=== PATIENT | male | born 1990 | race Two or more races ===

== ENCOUNTER 2021-02-06 09:13 | Emergency (ER) | payer OTHER ==
[~2021-02-06] VITALS: Ht 160 cm; Wt 65.8 kg
[2021-02-06 09:44] LABS: Basophils # (auto) 0 10 ^3/uL (0-0.2); Basophils % (auto) 0.5 % (0.0-2.0); Eosinophils # (auto) 0.1 10 ^3/uL (0-0.8); Eosinophils % (auto) 1.5 % (0.0-7.0); Hematocrit 46.3 % (41.0-53.0); Hemoglobin 16.3 g/dL (13.5-17.5); Lymphocytes # (auto) 1.9 10 ^3/uL (0.4-5.4); Lymphocytes % (auto) 26.6 % (10.0-50.0); Mean Corpuscular Hgb Conc. 35.1 g/dL (32.0-36.0); Mean Corpuscular Volume 88.3 fL (80.0-100.0); Monocytes # (auto) 0.4 10 ^3/uL (0-1.3); Monocytes % (auto) 5.6 % (0.0-12.0); Neutrophils # (auto) 4.7 10 ^3/uL (1.6-8.6); Neutrophils % (auto) 65.8 % (37.0-80.0); Platelet Count (auto) 360 10^3/uL (140-450); Red Blood Cells 5.24 10^6/uL (4.5-5.90); Red Cell Distribution Width 12.6 % (11.8-14.3); White Blood Cell 7.1 10^3/uL (4.4-10.8)
[2021-02-06 10:01] LABS: Albumin 4.4 g/dL (3.4-5.0); Anion Gap 8 (5-15); Blood Urea Nitrogen 12 mg/dL (7-18); Calcium 9.4 mg/dL (8.5-10.1); Carbon Dioxide 25 mmol/L (21-32); Chloride 104 mmol/L (98-107); Glucose 98 mg/dL (74-106); Magnesium 2.9 mg/dL (1.6-2.6); Potassium 3.6 mmol/L (3.5-5.1); Sodium 137 mmol/L (136-145)
[2021-02-06 10:07] LABS: Alanine Aminotransferase 27 U/L (16-61); Alkaline Phosphatase 102 U/L (45-117); Aspartate Aminotransferase 30 U/L (15-37); BUN/Creatinine Ratio 10.3; Bilirubin, Total 0.6 mg/dL (0.2-1.0); GFR African American 96 mL/min; GFR Non-African American 80 mL/min; Total Protein 8.9 g/dL (6.4-8.2)
[2021-02-06 10:50] VITALS: BP 124/67
== END 2021-02-06 10:54 | disposition home or self-care (01) ==
LOC: EDBD 09:13 → ER 09:13
DX: F41.9 Anxiety disorder, unspecified (principal); R42 Dizziness and giddiness
CPT/HCPCS: 36415; 80053; 83735; 84484; 85025